=== PATIENT | female | born 1970 | race Hispanic/Latino ===

== ENCOUNTER 2017-01-25 16:41 | Emergency (ER) | payer OTHER | END 2017-01-25 17:44 | disposition home or self-care (01) | LOC: BURERS 16:41 | DX: S06.0X0A Concussion without loss of consciousness, initial encounter (principal); M54.5 Low back pain; V49.9XXA Car occupant (driver) (passenger) injured in unspecified traffic accident, initial encounter | CPT/HCPCS: 99283 ==

== ENCOUNTER 2024-08-02 16:30 | Outpatient (CLI) | payer OTHER | END 2024-08-02 16:31 | disposition home or self-care (01) | LOC: BURRAD 16:30 | PROVIDERS: ATTEND Physician Assistant | DX: G56.91 Unspecified mononeuropathy of right upper limb (principal) ==